=== PATIENT | female | born 2000 | race Caucasian/White ===

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

== ENCOUNTER 2021-05-14 10:12 | Emergency (ER) | payer BC, OTHER ==
[~2021-05-14] VITALS: Ht 162.6 cm; Wt 84.7 kg
[2021-05-14] MEDS ORDERED: IV NORMAL SALINE 1,000ML 1,000 ML IV ONE (10:45)
[2021-05-14] MEDS ORDERED: DEXAMETHASONE SOD PHOS 10 MG/ML VIAL. IVP ONE (10:45)
[2021-05-14] MEDS ORDERED: diphenhydrAMINE HCL 25 MG CAPSULE PO ONE (10:45)
[2021-05-14] MEDS ORDERED: PROCHLORPERAZINE 10 MG/2 ML VIAL. IV ONE (10:45)
--- NOTE | 2021-05-14 10:56 | PHYS DOC ---
Past History Past Medical History: No Pertinent History Past Surgical History: Appendectomy, Other Additional Past Surgical Histo: ear Smoking: Non-smoker Alcohol Use: None Drug Use: Marijuana Adult General Chief Complaint Chief Complaint: HEADACHE HPI HPI Patient is a 20-year-old female who presents to the emergency room complaining of a frontal headache. She states it started yesterday morning at work. She tried to take some Excedrin and Tylenol without any relief. She states is been constant since onset. She states that is progressively gotten worse. No sudden onset. She has not had any fever or neck stiffness. She had to have surgery on her left ear last week and had a minor headache at that time and was told that was normal normal. She denies any radiation. She states she has some mild nausea and some photophobia. She denies any visual changes, numbness, weakness, syncope, seizure, confusion, fatigue, vomiting, abdominal pain, chest pain, shortness of breath. Review of Systems Review of Systems Complete ROS is negative unless otherwise documented in HPI Current Medications Current Medications Current Medications Medications (Trade) Dose Ordered Sig/Scott Start Time Stop Time Status Last Admin Dose Admin Dexamethasone Sodium Phosphate (Decadron) 10 mg 1X ONCE 05/14/21 10:45 05/14/21 10:46 DC 05/14/21 10:44 10 MG Diphenhydramine HCl (Benadryl) 25 mg 1X ONCE 05/14/21 10:45 05/14/21 10:46 DC 05/14/21 10:44 25 MG Prochlorperazine Edisylate (Compazine) 10 mg 1X ONCE 05/14/21 10:45 05/14/21 10:46 DC 05/14/21 10:45 10 MG Sodium Chloride 1,000 ml @ 1,000 mls/hr 1X ONCE 05/14/21 10:45 05/14/21 11:44 05/14/21 10:45 1,000 MLS/HR Allergies Allergies Allergies Uncoded Allergies Type Severity Reaction Last Updated Verified PENICILLINS RUN IN FAMILY Allergy Unknown 03/24/16 Physical Exam Physical Exam General: Awake, alert, NAD. Well Nourished, well hydrated. Cooperative HEENT: Atraumatic, EOMI, PERRL, airway patent, moist oral mucosa Neck: Supple, trachea midline Respiratory: CTA bilaterally, normal effort, no wheezing/crackles CV: RRR, no murmur, cap refill <2 GI: Soft, nondistended, nontender, no masses MSK: No obvious deformities Skin: Warm, dry, intact Neuro: A&O x3, speech NL, 5/5 strength in BUE/BLE distally and proximally, CN 2- 12 intact, cerebellar testing normal Psych: Normal affect, normal mood, not suicidal or homicidal Current Patient Data Vital Signs Vital Signs Date Time Temp Pulse Resp B/P (MAP) Pulse Ox O2 Delivery O2 Flow Rate FiO2 05/14/21 10:21 98.0 63 16 116/79 (91) 98 Room Air EKG EKG [] Radiology/Procedures Radiology/Procedures [] Heart Score C/O Chest Pain: N/A Risk Factors: Risk Factors: DM, Current or recent (<one month) smoker, HTN, HLP, family history of CAD, obesity. Risk Scores: Risk Factors: DM, Current or recent (<one month) smoker, HTN, HLP, family history of CAD, obesity. Course & Med Decision Making Course & Med Decision Making Pertinent Labs and Imaging studies reviewed. (See chart for details) Patient is a 20yo female who presents to the emergency room complaining of a migraine. Patient did not have sudden onset of severe headache that would be concerning for subarachnoid hemorrhage. Patient does not have any neurologic deficits on exam. She does not have any fever or neck stiffness that be c oncerning for meningitis or encephalitis. Patient will be given a migraine cocktail. On reevaluation, patient is significantly improved and would like to go home. Patient's test results and vitals while in the ED were fully reviewed and discussed with the patient. Patient is stable and at this time does not need admission to the hospital. We have discussed strict return precautions and the importance of following up with their Primary Care Physician. Patient stated understanding and was given an opportunity to ask any questions. Patient is in agreement with plan. Dragon Disclaimer Dragon Disclaimer This electronic medical record was generated, in whole or in part, using a voice recognition dictation system. Departure Departure: Impression: Primary Impression: Migraine Disposition: HOME / SELF CARE / HOMELESS Condition: STABLE Referrals: CARLOS VÁSQUEZ MD (PCP) Patient Instructions: Migraine Headache JERMAINE ROBERTS MD May 14, 2021 10:56
[2021-05-14 11:46] VITALS: BP 114/76
== END 2021-05-14 11:59 | disposition home or self-care (01) ==
LOC: ER 10:12
DX: G43.909 Migraine, unspecified, not intractable, without status migrainosus (principal)
CPT/HCPCS: 96361; 96374; 96375; 99284; J0780; J1100; J7030; Q0163